=== PATIENT | male | born 1975 | race Caucasian/White ===

== ENCOUNTER 2024-12-31 16:37 | Inpatient (IN) | payer OTHER ==
[~2024-12-31] VITALS: Ht 180.3 cm; Wt 123.0 kg
--- NOTE | 2024-12-31 16:50 | ED.PDOC ---
History of Present Illness HPI Comments 49-year-old male presents with a chief complaint of rash to his bilateral legs x 1 year. Patient states that for the past year he has been having a patchy red rash to his bilateral lower extremities. There is no erythema, discharge, weeping, or tenderness to the rash or legs. Patient is able to ambulate. Time Seen by MD: 16:45 Primary Care Provider: NONE Reviewed Notes: Medications, Allergies Allergies: Coded Allergies: NO KNOWN ALLERGIES (Unverified , 08/15/14) Information Source: Patient Mode of Arrival: Ambulatory Severity: Moderate Timing: Months Duration: Since onset Prehospital treatment: None Past Medical History PAST MEDICAL HISTORY: Denies Surgical History: Denies all surgeries Family History Family History: Unknown Social History Smoker: Non-Smoker Alcohol: Denies ETOH Use Drugs: Denies Drug Use Lives In: Home Constitutional: denies: chills, diaphoresis, fatigue, fever, malaise, sweats, weakness, others EENTM: denies: blurred vision, double vision, ear bleeding, ear discharge, ear drainage, ear pain, ear ringing, eye pain, eye redness, hearing loss, mouth pain, mouth swelling, nasal discharge, nose bleeding, nose congestion, nose pain, photophobia, tearing, throat pain, throat swelling, voice changes, others Respiratory: denies: cough, hemoptysis, orthopnea, SOB at rest, shortness of breath, SOB with excertion, stridor, wheezing, others Cardiovascular: denies: chest pain, dizzy spells, diaphoresis, Dyspnea on exertion, edema, irregular heart beat, left arm pain, lightheadedness, palpitations, PND, syncope, others Gastrointestinal: denies: abdomen distended, abdominal pain, blood streaked bowels, constipated, diarrhea, dysphagia, difficulty swallowing, hematemesis, melena, nausea, poor appetite, poor fluid intake, rectal bleeding, rectal pain, vomiting, others Genitourinary: denies: burning, dysuria, flank pain, frequency, hematuria, incontinence, penile discharge, penile sore, pain, testicle pain, testicle swelling, urgency, others Neurological: denies: dizziness, fainting, headache, left sided numbness, left sided weakness, numbness, paresthesia, pre-existing deficit, right sided numbness, right sided weakness, seizure, speech problems, tingling, tremors, weakness, others Musculoskeletal: denies: back pain, gout, joint pain, joint swelling, muscle pain, muscle stiffness, neck pain, others Integumetry: reports: rash; denies: bruises, change in color, change in hair/nails, dryness, laceration, lesions, lumps, wounds, others Allergic/Immunocompromised: denies: Difficulty Healing, Frequent Infections, Hives, Itching, others Hematologic/Lymphatic: denies: anemia, blood clots, easy bleeding, easy bruising, swollen glands, others Endocrine: denies: excessive hunger, excessive sweating, excessive thirst, excessive urination, flushing, intolerance to cold, intolerance to heat, unexplained weight gain, unexplained weight loss, others Psychiatric: denies: anxiety, bipolar disorder, depression, hopeless, panic disorder, schizophrenia, sleepless, suicidal, others All Other Systems: Reviewed and Negative Physical Exam General Appearance: No Apparent Distress, Normal HEENT: Normal ENT Inspection, Pharynx Normal, TMs Normal Neck: Full Range of Motion, Non-Tender, Normal, Normal Inspection Respiratory: Chest Non-Tender, Lungs Clear, No Accessory Muscle Use, No Respiratory Distress, Normal Breath Sounds Cardiovascular: No Edema, No JVD, No Murmur, No Gallop, Normal Peripheral Pulses, Regular Rate/Rhythm Breast Exam: Deferred Gastrointestinal: No Organomegaly, Non Tender, No Pulsatile Mass, Normal Bowel Sounds, Soft Genitalia: Deferred Pelvic: Deferred Rectal: Deferred Extremities: No calf tenderness, Normal capillary refill, Normal inspection, Normal range of motion, Non-tender, No pedal edema, Other (PATCHY RED RASH TO BILATERAL LOWER EXTREMITIES) Musculoskeletal : Apperance: Normal Neurologic: Alert, plant technician/control room operator II-XII nml as Tested, No Motor Deficits, Normal Affect, Normal Mood, No Sensory Deficits Cerebellar Function: Normal Reflexes: Normal Skin: Dry, Normal Color, Warm Lymphatic: No Adenopathy Was a procedure done? Was a procedure done?: No Differential Dx Considerations may include: cellulitis, psoriasis, diabetic necrobiosis lipoidica, dermatophytosis, eczema X-Ray, Labs, Meds, VS Vital Signs Date Time Temp Pulse Resp B/P (MAP) Pulse Ox O2 Delivery O2 Flow Rate FiO2 12/31/24 16:48 98.4 110 18 117/53 (74) 97 98.4 Lab Test 12/31/24 16:50 12/31/24 16:45 Range/Units Sodium Level 135 L 136-145 mmol/L Potassium Level 4.5 3.5-5.1 mmol/L Chloride Level 102 98-107 mmol/L Carbon Dioxide Level 24 20-31 mmol/L Anion Gap 9 5-15 Blood Urea Nitrogen 15 9-23 mg/dL Creatinine 1.24 0.700-1.30 mg/dL Glomerular Filtration Rate Calc 72 >90 mL/min BUN/Creatinine Ratio 12.1 10.0-20.0 Serum Glucose 416 *H 74-106 mg/dL Calcium Level 10.8 H 8.7-10.4 mg/dL POC Glucose 441 *H 70-106 mg/dl Time of 1ST Reevaluation: 17:15 Reevaluation 1ST: Unchanged Patient Education/Counseling: Diagnosis, Treatment, Prognosis, Need For Follow Up Family Education/Counseling: Diagnosis, Treatment, Prognosis, Need For Follow Up, No Family Present Comments pt has newly diagnosed diabetes and the rash may well be DNL. 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 Electronically submitted by Reinaldo Albert ([email or web address]). DOUGLAS BALL MD Dec 31, 2024 16:50
[2024-12-31 17:09] LABS: Chloride 102 mmol/L (98-107); Potassium 4.5 mmol/L (3.5-5.1)
[2024-12-31 17:10] LABS: Anion Gap 9 (5-15); Carbon Dioxide 24 mmol/L (20-31)
[2024-12-31 17:11] LABS: Calcium 10.8 mg/dL (8.7-10.4); Sodium 135 mmol/L (136-145)
[2024-12-31 17:16] LABS: BUN/Creatinine Ratio 12.1 (10.0-20.0); Blood Urea Nitrogen 15 mg/dL (9-23)
[2024-12-31 17:18] LABS: Glucose 416 mg/dL (74-106)
[2024-12-31] MEDS ORDERED: ONDANSETRON HCL 4 MG/2 ML VIAL IV PRN (19:30)
[2024-12-31] MEDS ORDERED: DEXTROSE (50%) 50ML SYRG IV PRN (19:30)
[2024-12-31] MEDS ORDERED: TEMAZEPAM 15 MG CAP PO PRN (19:30)
[2024-12-31] MEDS: InsuLIN REG 1unit/0.01ml Soln (100units/ml) SC SCH (20:00)
[2024-12-31] MEDS: InsuLIN REG 1unit/0.01ml Soln (100units/ml) SC ONE (20:00)
[2024-12-31] MEDS: ACCU-CHEK COMFORT CURVE STRIP VI SCH (20:06)
[2024-12-31 20:40] LABS: Erythrocyte Sedimentation Rate 7 mm/hr (0-20)
[2024-12-31 21:35] VITALS: PULSE 86; RESP 16; O2SAT 97
[2024-12-31 22:01] VITALS: BP 128/96; PULSE 108; RESP 20; TEMP 98.4; O2SAT 95
[2024-12-31] MEDS: HYDROCORTONE 1% TOPICAL CREAM 30 GM TUBE TOP SCH (22:47)
[2025-01-01] VITALS (8 sets, daily range): BP systolic 122–163; BP diastolic 61–97; PULSE 80–117; RESP 16–20; TEMP 97.7–98.4; O2SAT 93–97
--- NOTE | 2025-01-01 04:06 | DVHHP2 ---
History of Present Illness Reason for Visit: Body rash History of Present Illness 49-year-old male presents for evaluation of a body rash. Patient reports developing a rash on bilateral calves that has been ongoing for the past one year. States he recently started on his right arm and throughout his back. Denies any fever or chills. On arrival patient was also noted to have elevated blood sugars. Denies being on insulin or anti diabetic medications. No other acute complaints reported. Past Medical History Diabetes mellitus Past Surgical History Denies Family History Noncontributory Smoke: No ALCOHOL: none Drugs: None Lives: with Family Review of Systems Review of Systems Review of systems are currently negative otherwise addressed in HPI. Allergies: Coded Allergies: NO KNOWN ALLERGIES (Unverified , 08/15/14) Medications Current Medications Medications Dose Ordered Sig/Aubrey Route Start Time Stop Time Status Last Admin Dose Admin Hydrocortisone 1 applic BID TOP 12/31/24 22:00 12/31/24 22:47 1 APPLIC Diagnostic Test (Pha) 1 strip IQ4HR 12/31/24 20:00 12/31/24 23:47 1 STRIP Insulin Human Regular IQ4HR SC 12/31/24 20:00 12/31/24 23:49 6 UNITS Dextrose 50 ml UD PRN IV 12/31/24 19:30 Temazepam 15 mg QHSP PRN PO 12/31/24 19:30 Ondansetron HCl 4 mg Q4HP PRN IV 12/31/24 19:30 Acetaminophen 650 mg Q6HP PRN PO 12/31/24 19:30 Exam Vital Signs Vital Signs Date Time Temp Pulse Resp B/P (MAP) Pulse Ox O2 Delivery O2 Flow Rate FiO2 01/01/25 00:00 98.0 117 20 163/97 (119) 97 98.0 12/31/24 22:01 Room Air* 0 21 Exam Gen: 49-year-old male in mild distress Skin: Warm, dry, normal color and texture, rash to bilateral casts, right upper arm and throughout his back. HEENT: Normocephalic atraumatic, mucous membranes moist and pink. Neck: Cervical and supraclavicular nodes normal without enlargement, trachea is midline, thyroid gland is normal without masses. Pulmonary: Clear to auscultation and percussion bilaterally. Cardiac: Regular rate and rhythm. No murmur Abdomen: Soft, nontender, nondistended, bowel sounds present all 4 quadrants, no guarding, no rigidity, no organomegaly. Extremities: No cyanosis, clubbing, no edema Neuro: Cranial nerves II through XII grossly intact, normal affect and speech, no focal motor deficits. Labs/Xrays Labs Test 12/31/24 23:43 12/31/24 16:50 Range/Units POC Glucose 288 H 70-106 mg/dl Erythrocyte Sedimentation Rate 7 0-20 mm/hr Sodium Level 135 L 136-145 mmol/L Potassium Level 4.5 3.5-5.1 mmol/L Chloride Level 102 98-107 mmol/L Carbon Dioxide Level 24 20-31 mmol/L Anion Gap 9 5-15 Blood Urea Nitrogen 15 9-23 mg/dL Creatinine 1.24 0.700-1.30 mg/dL Glomerular Filtration Rate Calc 72 >90 mL/min BUN/Creatinine Ratio 12.1 10.0-20.0 Serum Glucose 416 *H 74-106 mg/dL Calcium Level 10.8 H 8.7-10.4 mg/dL C-Reactive Protein High Sensitivity 0.56 <1.0 mg/dL Assessment/Plan Assessment/Plan Assessment Uncontrolled diabetes mellitus Body rash Plan Admit the patient to Med surge to the hospitalist Q.4 hour Accu-Cheks with moderate coverage ID consult Clindamycin Blood cultures pending Continue treatment per orders Plan discussed with: Patient My Orders Orders - TAZ BARGER AGACNP Procedure Category Date Status Time Hydrocortone 1% PHA 12/31/24 In Process Topical Cream 22:00 Consistent DIET 01/01/25 Transmitted Carb(Ccho)Diabetes Breakfast Blood Culture RASHID 12/31/24 In Process 19:27 Glucose Blood PHA 12/31/24 In Process (Accu-Chek Comfort 20:00 Insulin R (Human) PHA 12/31/24 In Process (Insulin R) 20:00 Dextrose 50% Syringe PHA 12/31/24 In Process 19:30 Admit ADMIT 12/31/24 Transmitted 19:27 Temazepam (Restoril) PHA 12/31/24 In Process 19:30 Ondansetron Hcl PHA 12/31/24 In Process (Zofran) 19:30 Complete Blood Count LAB 01/01/25 Logged 04:00 Condition: Stable LUNA 12/31/24 In Process 19:27 Acetaminophen Tablet PHA 12/31/24 In Process (Tylenol Tablet) 19:30 Bedrest With Bathroom LUNA 12/31/24 In Process Privileg 19:27 Hepatitis B Surface LAB 12/31/24 In Process Antigen 22:06 Hepatitis C Antibody LAB 12/31/24 In Process 22:06 Date of Service: Dec 31, 2024 Billing Provider: TAZ BARGER Common Visit Codes: [id number] INP/OBS CARE (MOD) TAZ BARGER Jan 01, 2025 04:06
[2025-01-01] MEDS: CLINDAMYCIN 600MG IV 50 ML IV SCH (05:35)
[2025-01-01] MEDS: ACETAMINOPHEN 325 MG TAB PO PRN (05:35)
[2025-01-01 07:07] LABS: Basophils # (auto) 0 10 ^3/uL (0-0.2); Basophils % (auto) 0.3 % (0.0-2.0); Eosinophils % (auto) 9.6 % (0.0-7.0); Hematocrit 46.4 % (41.0-53.0); Hemoglobin 16.4 g/dL (13.5-17.5); Lymphocytes # (auto) 3.4 10 ^3/uL (0.4-5.4); Lymphocytes % (auto) 32.7 % (10.0-50.0); Mean Corpuscular Hemoglobin 30.7 pg (28.0-32.0); Mean Corpuscular Hgb Conc. 35.5 g/dL (32.0-36.0); Mean Corpuscular Volume 86.7 fL (80.0-100.0); Monocytes # (auto) 0.9 10 ^3/uL (0-1.3); Monocytes % (auto) 8.5 % (0.0-12.0); Neutrophils # (auto) 5.1 10 ^3/uL (1.6-8.6); Neutrophils % (auto) 48.9 % (37.0-80.0); Nucleated Red Blood Cells % 0.1 %; Platelet Count (auto) 268 10^3/uL (140-450); Red Blood Cells 5.35 10^6/uL (4.5-5.90); Red Cell Distribution Width 12.4 % (11.8-14.3); White Blood Cell 10.4 10^3/uL (4.4-10.8)
--- NOTE | 2025-01-01 22:45 | DVHPN2 ---
Objective Vitals Vital Signs Date Time Temp Pulse Resp B/P (MAP) Pulse Ox O2 Delivery O2 Flow Rate FiO2 01/01/25 20:53 98.4 91 18 122/81 (95) 96 98.4 01/01/25 08:05 Room Air* 0 21 Intake/Output Intake and Output 01/01/25 07:00 Intake Total 900 ml Balance 900 ml Intake Oral 900 ml # Voids 1 Medications Current Medications Medications Dose Ordered Sig/Aubrey Route Start Time Stop Time Status Last Admin Dose Admin Hydrocortisone 1 applic BID TOP 12/31/24 22:00 01/01/25 22:25 1 APPLIC Diagnostic Test (Pha) 1 strip IQ4HR 12/31/24 20:00 01/01/25 19:55 1 STRIP Insulin Human Regular IQ4HR SC 12/31/24 20:00 01/01/25 20:05 6 UNITS Dextrose 50 ml UD PRN IV 12/31/24 19:30 Temazepam 15 mg QHSP PRN PO 12/31/24 19:30 Ondansetron HCl 4 mg Q4HP PRN IV 12/31/24 19:30 Acetaminophen 650 mg Q6HP PRN PO 12/31/24 19:30 01/01/25 20:09 650 MG Clindamycin Phosphate 50 ml @ 50 mls/hr Q8HR IV 01/01/25 06:00 01/01/25 22:25 50 MLS/HR Laboratory Results Laboratory Tests 12/31/24 16:50 01/01/25 06:18 Microbiology Microbiology Date/Time Source Procedure Growth Status 12/31/24 19:45 Blood Blood Culture - Preliminary NO GROWTH AFTER 24 HOURS OF INCUBATION. Resulted RAVEN PLATT MD Jan 01, 2025 22:45
[2025-01-02 01:00] VITALS: BP 131/72; PULSE 74; RESP 18; TEMP 98.4; O2SAT 95
[2025-01-02 05:00] VITALS: BP 116/70; PULSE 84; RESP 18; TEMP 98.4; O2SAT 96
--- NOTE | 2025-01-02 06:30 | DVHINCON2 ---
Date of service: Jan 01, 2025 Family History: Alcoholism FH: pancreatic cancer G8 FATHER Allergies: Coded Allergies: NO KNOWN ALLERGIES (Unverified , 08/15/14) Home Meds No Active Prescriptions or Reported Meds Vital Signs Vital Signs Date Time Temp Pulse Resp B/P (MAP) Pulse Ox O2 Delivery O2 Flow Rate FiO2 01/02/25 05:00 98.4 84 18 116/70 (85) 96 98.4 01/01/25 20:00 Room Air* 0 21 Labs/Diagnostic Data Labs Test 01/02/25 05:29 01/01/25 06:18 12/31/24 16:50 Range/Units POC Glucose 265 H 70-106 mg/dl White Blood Count 10.4 4.4-10.8 10^3/uL Red Blood Count 5.35 4.5-5.90 10^6/uL Hemoglobin 16.4 13.5-17.5 g/dL Hematocrit 46.4 41.0-53.0 % Mean Corpuscular Volume 86.7 80.0-100.0 fL Mean Corpuscular Hemoglobin 30.7 28.0-32.0 pg Mean Corpuscular Hemoglobin Concent 35.5 32.0-36.0 g/dL Red Cell Distribution Width 12.4 11.8-14.3 % Platelet Count 268 140-450 10^3/uL Mean Platelet Volume 7.4 6.9-10.8 fL Neutrophils (%) (Auto) 48.9 37.0-80.0 % Lymphocytes (%) (Auto) 32.7 10.0-50.0 % Monocytes (%) (Auto) 8.5 0.0-12.0 % Eosinophils (%) (Auto) 9.6 H 0.0-7.0 % Basophils (%) (Auto) 0.3 0.0-2.0 % Neutrophils # (Auto) 5.1 1.6-8.6 10 ^3/uL Lymphocytes # (Auto) 3.4 0.4-5.4 10 ^3/uL Monocytes # (Auto) 0.9 0-1.3 10 ^3/uL Eosinophils # (Auto) 1.0 H 0-0.8 10 ^3/uL Basophils # (Auto) 0 0-0.2 10 ^3/uL Nucleated Red Blood Cells 0.1 % Erythrocyte Sedimentation Rate 7 0-20 mm/hr Sodium Level 135 L 136-145 mmol/L Potassium Level 4.5 3.5-5.1 mmol/L Chloride Level 102 98-107 mmol/L Carbon Dioxide Level 24 20-31 mmol/L Anion Gap 9 5-15 Blood Urea Nitrogen 15 9-23 mg/dL Creatinine 1.24 0.700-1.30 mg/dL Glomerular Filtration Rate Calc 72 >90 mL/min BUN/Creatinine Ratio 12.1 10.0-20.0 Serum Glucose 416 *H 74-106 mg/dL Calcium Level 10.8 H 8.7-10.4 mg/dL C-Reactive Protein High Sensitivity 0.56 <1.0 mg/dL Microbiology Date/Time Source Procedure Growth Status 12/31/24 19:45 Blood Blood Culture - Preliminary NO GROWTH AFTER 24 HOURS OF INCUBATION. Resulted Problems(with codes): (1) Petechial rash (2) Diabetes mellitus, new onset (3) Hyperglycemia (4) Diabetic necrobiosis lipoidica Plan/Recommendation ASSESSMENT AND PLAN: ID Problem List: - Diffuse petechial rash - Diabetes mellitus - Hypertension (per elevated readings in ED) Assessment: This is a male with a history of diabetes mellitus who presents with a diffuse, chronic petechial rash primarily involving the calves and shins, now extending to the right arm and back, described as pruritic, with chronicity over the past year. There is no past medical history of smoking, alcohol use, or intravenous drug use. 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 No current medication use is reported. On presentation: - Rash is described as petechial, non-blanching, with clear borders, and at times pruritic; currently scabbed over with some areas reported as previously weeping, but currently without active weeping or vesicles. - No associated fever, chills, malaise, gastrointestinal or joint symptoms, or systemic signs of sepsis. - Laboratory data: WBC 10.4, hemoglobin 16.4, platelets 268, glucose reported as elevated (282 and 416), sodium 135, BUN 15, creatinine 1.24. - Blood cultures to date show no growth. - No imaging performed. Differential considerations include infectious etiologies (e.g., rickettsial illness, Q fever, meningococcal infection, viral exanthems including measles and mononucleosis, hepatitis C) and noninfectious etiologies (immune thrombocytopenic purpura (ITP), vasculitis, autoimmune conditions, and other systemic processes). Given the absence of fever and systemic illness, an infectious etiology is less likely but cannot be excluded. Plan: - Hold antibiotics and antivirals at this time. - Further laboratory workup: obtain hepatitis panel, HIV screen, strep testing, mononucleosis and influenza testing. - Refer urgently to dermatology for evaluation and consideration of skin biopsy for definitive diagnosis. - Consider additional evaluation for autoimmune/vasculitic processes if clinically warranted. - No steroids at this time given absence of systemic features and further workup pending. - Monitor blood glucose as levels are elevated. - Blood cultures to continue; monitor for new signs of systemic infection. - Ensure follow-up and close monitoring for progression or systemic manifestations. Isolation Precautions: - Not specified. Assessment and plan was discussed with the patient as written above. Plan is subject to change pending incorporation of new incoming information/diagnostics. Updates may be added as addendum at the bottom (OR TOP) of this note. Thank you for interesting consult. ID will continue to follow. Please contact Infectious Disease for any questions or concerns. Abhijit Raya M.D. [facility] Ph: ? History: The patient's chart and available laboratory results were reviewed in detail and the patient was seen and examined. History obtained from: patient. The patient is a male with a past medical history notable for diabetes mellitus who presents for evaluation of a progressive, chronic, non-blanching petechial rash predominantly on the bilateral calves and shins, now spreading to the right arm and back. Rash described as pruritic with clear borders, at times with minor weeping but currently scabbed. No fevers, chills, joint pain, or gastrointestinal symptoms. No history of recent travel or sexual activity. He denies tobacco, alcohol, or illicit drug use. Patient is not on any home medications. 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 Review of Systems: A complete 10-system review of systems was completed and negative except as noted in the HPI or here. - CONSTITUTIONAL: Denies weight loss, fever, and chills. - HEENT: Denies changes in vision and hearing. - RESPIRATORY: Denies shortness of breath and cough. - CARDIOVASCULAR: Denies chest pain and palpitations. - GASTROINTESTINAL: Denies poor appetite, nausea, vomiting, diarrhea, or abdominal pain. - GENITOURINARY: Denies dysuria or urinary frequency. - MUSCULOSKELETAL: Denies joint pain. - SKIN: Pruritic, non-blanching petechial rash (as described above). - NEUROLOGICAL: Denies headache or syncope. - PSYCHIATRIC: Denies recent changes in mood, anxiety, or depression. Past Medical History: - Diabetes mellitus Past Surgical History: Not provided in transcript. Home Medications: Patient not on any home medications. Allergies: Not provided in transcript. Family History: Not provided in transcript. 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 - No tobacco use. - No alcohol use. - Denies illicit drug use. - Denies sexual activity. Social Determinants of Health: Not provided in transcript. Objective: Vital Signs on Arrival: Temp: 98.0 F BP: 163/97 Pulse: 117 Resp: 20 SpO2: 97% on room air Most Recent Vital Signs: Not otherwise specified. Admission Weight: Not provided in transcript. Physical Exam: General: NAD Neck: Supple. No masses. HEENT: PERRL. Normal lids and conjunctiva. Moist mucous membranes. Oropharynx without lesions, exudates or excessive erythema. Normal appearance of the external aspects of the nose and ears. Heart: Regular rhythm, normal rate. No murmur. No lower extremity edema. Lungs: Normal respiratory effort. Clear to auscultation bilaterally. No wheezes. No crackles. Abdomen: Soft. Non-tender. Non-distended. No masses or abdominal hernia. Msk: No digital cyanosis. Normal strength and tone in all 4 limbs Skin: Petechial, non-blanching rash on bilateral calves, shins, right arm, and back. No edema or weeping at present. No vesicles. Neuro: Alert. No facial droop or slurred speech. Extra-ocular movements intact. Sensation intact to soft touch in all 4 limbs. Psych: Appropriate mood. Full affect. Oriented to person, place, time, and situation. Lines: Not provided in transcript. Diagnostic Studies: Blood cultures: No growth to date. Laboratory Data: WBC: 10.4 - Hemoglobin: 16.4 - Platelets: 268 - Sodium: 135 BUN: 15 - Creatinine: 1.24 - Glucose: Elevated (282 and 416 as reported) Pertinent Imaging: No imaging has been performed. End of Note. Plan discussed with: Patient ABHIJIT RAYA MD Jan 02, 2025 06:29
[2025-01-02 08:00] VITALS: PULSE 80; O2SAT 96
[2025-01-02 08:41] VITALS: BP 109/72; PULSE 80; RESP 20; TEMP 97.7; O2SAT 100
[2025-01-02 09:51] LABS: Rapid Strep A Screen-Throat Negative
[2025-01-02 10:06] LABS: Rapid Influenza A Negative (Negative); Rapid Influenza B Negative (Negative)
[2025-01-02 10:07] LABS: Hepatitis B Surface Antigen Negative (Negative)
[2025-01-02 10:27] LABS: Hepatitis C Antibody Negative (Negative)
[2025-01-02 10:41] LABS: Albumin 4.6 g/dL (3.2-4.8); Total Protein 7.4 g/dL (5.7-8.2)
[2025-01-02 10:43] LABS: Bilirubin, Direct 0.3 mg/dL (<0.3)
--- NOTE | 2025-01-02 11:59 | DVHPN2 ---
Objective Vitals Vital Signs Date Time Temp Pulse Resp B/P (MAP) Pulse Ox O2 Delivery O2 Flow Rate FiO2 01/02/25 08:41 97.7 80 20 109/72 (84) 100 97.7 01/02/25 08:00 Room Air* 0 21 Intake/Output Intake and Output 01/02/25 07:00 Intake Total 3200 ml Balance 3200 ml Intake Oral 3050 ml IV Total 150 ml # Voids 3 Medications Current Medications Medications Dose Ordered Sig/Aubrey Route Start Time Stop Time Status Last Admin Dose Admin Hydrocortisone 1 applic BID TOP 12/31/24 22:00 01/02/25 09:13 1 APPLIC Diagnostic Test (Pha) 1 strip IQ4HR 12/31/24 20:00 01/02/25 09:26 1 STRIP Insulin Human Regular IQ4HR SC 12/31/24 20:00 01/02/25 09:26 6 UNITS Dextrose 50 ml UD PRN IV 12/31/24 19:30 Temazepam 15 mg QHSP PRN PO 12/31/24 19:30 Ondansetron HCl 4 mg Q4HP PRN IV 12/31/24 19:30 Acetaminophen 650 mg Q6HP PRN PO 12/31/24 19:30 01/02/25 05:24 650 MG Clindamycin Phosphate 50 ml @ 50 mls/hr Q8HR IV 01/01/25 06:00 01/02/25 05:23 50 MLS/HR Laboratory Results Laboratory Tests 12/31/24 16:50 01/01/25 06:18 Chemistry Test 01/02/25 09:20 Albumin 4.6 g/dL (3.2-4.8) Total Protein 7.4 g/dL (5.7-8.2) LFT Test 01/02/25 09:20 Alanine Aminotransferase (ALT) 36 U/L (7-40) Alkaline Phosphatase 80 U/L (46-116) Aspartate Amino Transferase (AST) 23 U/L (13-40) Direct Bilirubin 0.3 mg/dL (<0.3) Total Bilirubin 1.0 mg/dL (0.2-1.0) Microbiology Microbiology Date/Time Source Procedure Growth Status 12/31/24 19:45 Blood Blood Culture - Preliminary NO GROWTH AFTER 24 HOURS OF INCUBATION. Resulted RAVEN PLATT MD Jan 02, 2025 11:59
[2025-01-02 12:49] VITALS: BP 119/78; PULSE 86; RESP 20; TEMP 97.8; O2SAT 96
[2025-01-02] MEDS ORDERED: CLOTCRE3 EX (13:40)
[2025-01-02] MEDS ORDERED: DIPH25CA66 PO (13:40)
[2025-01-02] MEDS ORDERED: METF-370 PO (13:43)
[2025-01-02] MEDS ORDERED: CLOB0.05 TOP (13:43)
[2025-01-02] MEDS ORDERED: PRED-1055 PO (13:45)
--- NOTE | 2025-01-02 13:45 | DVHDS2 ---
Discharge Summary Date of Admission Dec 31, 2024 at 19:27 Date of Discharge: Jan 02, 2025 Labs/Diagnostic Data: Laboratory Results Test 01/02/25 12:14 01/02/25 09:38 01/02/25 09:20 01/01/25 06:18 POC Glucose 281 mg/dl (70-106) Influenza Type A Antigen Negative (Negative) Influenza Type B Antigen Negative (Negative) Group A Streptococcus Rapid Negative Total Bilirubin 1.0 mg/dL (0.2-1.0) Direct Bilirubin 0.3 mg/dL (<0.3) Aspartate Amino Transferase (AST) 23 U/L (13-40) Alanine Aminotransferase (ALT) 36 U/L (7-40) Alkaline Phosphatase 80 U/L (46-116) Total Protein 7.4 g/dL (5.7-8.2) Albumin 4.6 g/dL (3.2-4.8) Monoscreen Negative HIV (1&2) Antibody Negative (Negative) White Blood Count 10.4 10^3/uL (4.4-10.8) Red Blood Count 5.35 10^6/uL (4.5-5.90) Hemoglobin 16.4 g/dL (13.5-17.5) Hematocrit 46.4 % (41.0-53.0) Mean Corpuscular Volume 86.7 fL (80.0-100.0) Mean Corpuscular Hemoglobin 30.7 pg (28.0-32.0) Mean Corpuscular Hemoglobin Concent 35.5 g/dL (32.0-36.0) Red Cell Distribution Width 12.4 % (11.8-14.3) Platelet Count 268 10^3/uL (140-450) Mean Platelet Volume 7.4 fL (6.9-10.8) Neutrophils (%) (Auto) 48.9 % (37.0-80.0) Lymphocytes (%) (Auto) 32.7 % (10.0-50.0) Monocytes (%) (Auto) 8.5 % (0.0-12.0) Eosinophils (%) (Auto) 9.6 % (0.0-7.0) Basophils (%) (Auto) 0.3 % (0.0-2.0) Neutrophils # (Auto) 5.1 10 ^3/uL (1.6-8.6) Lymphocytes # (Auto) 3.4 10 ^3/uL (0.4-5.4) Monocytes # (Auto) 0.9 10 ^3/uL (0-1.3) Eosinophils # (Auto) 1.0 10 ^3/uL (0-0.8) Basophils # (Auto) 0 10 ^3/uL (0-0.2) Nucleated Red Blood Cells 0.1 % Test 12/31/24 16:50 Erythrocyte Sedimentation Rate 7 mm/hr (0-20) Sodium Level 135 mmol/L (136-145) Potassium Level 4.5 mmol/L (3.5-5.1) Chloride Level 102 mmol/L (98-107) Carbon Dioxide Level 24 mmol/L (20-31) Anion Gap 9 (5-15) Blood Urea Nitrogen 15 mg/dL (9-23) Creatinine 1.24 mg/dL (0.700-1.30) Glomerular Filtration Rate Calc 72 mL/min (>90) BUN/Creatinine Ratio 12.1 (10.0-20.0) Serum Glucose 416 mg/dL (74-106) Calcium Level 10.8 mg/dL (8.7-10.4) C-Reactive Protein High Sensitivity 0.56 mg/dL (<1.0) Hepatitis B Surface Antigen Negative (Negative) Hepatitis C Antibody Negative (Negative) Other Laboratory Tests 01/01/25 06:18 12/31/24 16:50 Final Diagnosis/Problems List DM new onset Rash Discharge Disposition: Home Discharge Instruct/Medications Diet: Consistent carbohydrate Activity: No Restrictions, As Tolerated Follow Up/Referral: PCP 1-2 weeks [employer] Starter per schedule Discharge Statement: "Patient was advised to return to the ER or call 911 if any headaches, dizziness, shortness of breath, chest pain, abdominal pain, bleeding, fevers, or worsening of medical condition. Patient was counseled about treatment plan, medications, possible side effects, patientverbalized understanding. All questions were answered to the best of my ability. This discharge took greater then 30 minutes in planning, reviewing documentation, counseling the patient, and discussing with other team members." ASSESSMENT ASSESSMENT Assessment DM new onset Rash RAVEN PLATT MD Jan 02, 2025 13:45
[2025-01-02 15:54] VITALS: BP 119/78; PULSE 86; RESP 16; TEMP 36.6; O2SAT 96
== END 2025-01-02 16:30 | disposition home or self-care (01) | DRG 813 ==
LOC: ER 16:37 → OVERFLOW 19:27 → WEST WING 23:52
PROVIDERS: ADMIT Internal Medicine; ATTEND Internal Medicine
DX: R23.3 Spontaneous ecchymoses (principal); E11.620 Type 2 diabetes mellitus with diabetic dermatitis; E11.65 Type 2 diabetes mellitus with hyperglycemia; I10 Essential (primary) hypertension; L29.9 Pruritus, unspecified; Z80.0 Family history of malignant neoplasm of digestive organs
CPT/HCPCS: 36415; 80048; 80076; 82962; 85025; 85652; 86141; 86308; 86703; 86735; 86765; 86803; 87040; 87070; 87340; 87804; 87880; G0378; J1815; J3490